=== PATIENT | female | born 1955 | race African-American/Black ===

== ENCOUNTER 2017-08-25 17:35 | Emergency (ER) | payer BC, MEDICARE ==
[~2017-08-25] VITALS: Ht 157.5 cm; Wt 63.2 kg
[2017-08-25] MEDS ORDERED: [UNRECOGNIZED DRUG - OTHER] PO (18:05)
[2017-08-25] MEDS ORDERED: CLINDAMYCIN HCL 150 MG CAPSULE PO ONE (19:15)
[2017-08-25] MEDS ORDERED: PERTUSS(ACELL),DIPH,TET VAC/PF 0.5 ML VIAL IM ONE (19:15)
[2017-08-25] MEDS ORDERED: HYDROCODONE/ACETAMINOPHEN 5-325 MG TABLET PO ONE (19:15)
[2017-08-25] MEDS ORDERED: POVIDONE-IODINE 10% 15 ML SOLUTION UD TP ONE (19:15)
[2017-08-25] MEDS ORDERED: LIDOCAINE HCL 1% 10 ML VIAL INJ ONE (19:15)
[2017-08-25] MEDS ORDERED: BUPIVACAINE HCL/PF 0.25% 10 ML VIAL INJ ONE (19:30)
[2017-08-25] MEDS ORDERED: BACITRACIN 0.9 GM PACKET OINTMENT TP ONE (20:30)
[2017-08-25 20:39] VITALS: BP 127/89
== END 2017-08-25 20:46 | disposition home or self-care (01) ==
LOC: EMS 17:37
DX: S61.250A Open bite of right index finger without damage to nail, initial encounter (principal); S61.251A Open bite of left index finger without damage to nail, initial encounter; I10 Essential (primary) hypertension; Z88.0 Allergy status to penicillin; Z91.040 Latex allergy status; W54.0XXA Bitten by dog, initial encounter; Y93.89 Activity, other specified; Y92.89 Other specified places as the place of occurrence of the external cause; Y99.8 Other external cause status
CPT/HCPCS: 12002; 90471; 90715; 99284; J3490 ×2

== ENCOUNTER 2017-08-28 20:17 | Emergency (ER) | payer BC, MEDICARE ==
[~2017-08-28] VITALS: Ht 157.5 cm; Wt 59.1 kg
[~2017-08-28 20:17] MED LIST: [UNRECOGNIZED DRUG - OTHER] PO
[2017-08-28] MEDS ORDERED: DOXY100C40 PO (20:25)
[2017-08-28 20:41] VITALS: BP 142/95
[2017-08-28] MEDS ORDERED: BACITRACIN 0.9 GM PACKET OINTMENT TP ONE (21:00)
== END 2017-08-28 21:05 | disposition home or self-care (01) ==
LOC: EMS 20:18
DX: Z48.00 Encounter for change or removal of nonsurgical wound dressing (principal); F31.9 Bipolar disorder, unspecified; I10 Essential (primary) hypertension; F20.9 Schizophrenia, unspecified; Z88.0 Allergy status to penicillin; Z91.040 Latex allergy status; Z79.899 Other long term (current) drug therapy
CPT/HCPCS: 99282

== ENCOUNTER → 2017-09-01 | Emergency (ER) | payer BC, MEDICARE ==
[~2017-09-01] VITALS: Ht 157.5 cm; Wt 63.2 kg
[~2017-09-01] MED LIST changes: +DOXY100C40 PO
[2017-09-01 09:54] VITALS: BP 137/80
== END | disposition home or self-care (01) ==
LOC: EMS 08:09
DX: T81.30XA Disruption of wound, unspecified, initial encounter (principal); I10 Essential (primary) hypertension; L08.9 Local infection of the skin and subcutaneous tissue, unspecified; K30 Functional dyspepsia; Z48.02 Encounter for removal of sutures; Z88.0 Allergy status to penicillin; Z91.040 Latex allergy status; Z98.84 Bariatric surgery status
CPT/HCPCS: 99284

== ENCOUNTER 2017-09-04 17:10 | Emergency (ER) | payer BC, MEDICARE ==
[~2017-09-04] VITALS: Ht 160 cm; Wt 63.2 kg
[2017-09-04 17:41] VITALS: BP 130/74
== END 2017-09-04 18:05 | disposition home or self-care (01) ==
LOC: EMS 17:11
DX: Z48.02 Encounter for removal of sutures (principal); I10 Essential (primary) hypertension; Z88.0 Allergy status to penicillin; Z91.040 Latex allergy status
CPT/HCPCS: 99283

== ENCOUNTER 2022-01-09 16:22 | Emergency (ER) | payer MEDICARE, BC ==
[~2022-01-09] VITALS: Ht 160 cm; Wt 63.2 kg
[~2022-01-09 16:22] MED LIST changes: +DOXY-336 PO; -DOXY100C40 PO
[2022-01-09 16:42] VITALS: BP 140/80
== END 2022-01-09 16:48 | disposition home or self-care (01) ==
LOC: EMS 16:36
DX: S81.852A Open bite, left lower leg, initial encounter (principal); F20.9 Schizophrenia, unspecified; F31.9 Bipolar disorder, unspecified; I10 Essential (primary) hypertension; Z88.0 Allergy status to penicillin; Z91.040 Latex allergy status; Z90.89 Acquired absence of other organs; Z98.890 Other specified postprocedural states; W54.0XXA Bitten by dog, initial encounter; Y93.89 Activity, other specified; Y92.89 Other specified places as the place of occurrence of the external cause; Y99.8 Other external cause status
CPT/HCPCS: 99281; Z7502